=== PATIENT | male | born 1990 | race Caucasian/White ===

== ENCOUNTER 2019-11-06 18:23 | Emergency (ER) | payer BC ==
--- NOTE | 2019-11-06 19:17 | EDM.PDOC ---
ED HPI GENERAL MEDICAL PROBLEM - General Chief Complaint: ENT Problem Stated Complaint: SORE THROAT Time Seen by Provider: 11/06/19 19:00 Source of Information: Reports: Patient, Old Records, RN History Limitations: Reports: No Limitations - History of Present Illness INITIAL COMMENTS - FREE TEXT/NARRATIVE: 28 yo male with a pHx of strep presents with a couple day hx of sore throat. No fever or rash. No URI sx's. Onset: Gradual Onset Date: 11/04/19 Duration: Day(s): (2), Constant Location: Reports: Neck (throat) Quality: Reports: Other (raw) Severity: Mild Improves with: Reports: None Worsens with: Reports: Other (? time) Context: Reports: Other (see HPI) Associated Symptoms: Reports: No Other Symptoms Treatments TRAIN OPERATIONS MANAGER: Reports: Other (see below) (none) - Related Data Allergies Allergy/AdvReac Type Severity Reaction Status Date / Time sulfamethoxazole Allergy Rash Verified 11/06/19 18:25 [From Bactrim] trimethoprim [From Bactrim] Allergy Rash Verified 11/06/19 18:25 Home Meds: Home Meds Sertraline HCl 50 mg PO DAILY 11/06/19 [History] Past Medical History HEENT History: Reports: Impaired Vision, Otitis Media Other HEENT History: tubes in ears as child Gastrointestinal History: Reports: None Musculoskeletal History: Reports: Fracture Other Musculoskeletal History: fx fingers and toes in past Psychiatric History: Reports: Anxiety Endocrine/Metabolic History: Reports: Obesity/BMI 30+ - Past Surgical History Head Surgeries/Procedures: Reports: None HEENT Surgical History: Reports: None GI Surgical History: Reports: Other (See Below) Other GI Surgeries/Procedures: bowel resection as a child from [facility] Endocrine Surgical History: Reports: None Musculoskeletal Surgical History: Reports: None Dermatological Surgical History: Reports: None Social & Family History - Tobacco Use Smoking Status *Q: Current Every Day Smoker Years of Tobacco use: 8 Packs/Tins Daily: 1 Used Tobacco, but Quit: No Second Hand Smoke Exposure: No - Caffeine Use Caffeine Use: Reports: Energy Drinks, Soda - Recreational Drug Use Recreational Drug Use: Yes Drug Use in Last 12 Months: Yes Recreational Drug Type: Reports: Marijuana/Hashish Recreational Drug Use Frequency: Rarely ED ROS ENT - Review of Systems Review Of Systems: See Below Constitutional: Reports: No Symptoms HEENT: Reports: Throat Pain. Denies: Rhinitis Respiratory: Reports: No Symptoms Cardiovascular: Reports: No Symptoms GI/Abdominal: Reports: No Symptoms : Reports: No Symptoms Skin: Reports: No Symptoms Neurological: Reports: No Symptoms ED EXAM, ENT - Physical Exam Exam: See Below Exam Limited By: No Limitations General Appearance: Alert, WD/WN, No Apparent Distress, Obese Eye Exam: Bilateral Eye: Normal Inspection Ears: Normal External Exam, Normal Canal, Hearing Grossly Normal, Normal TMs Nose: Normal Inspection, No Blood. No: Clear Rhinorrhea Mouth/Throat: Normal Inspection, Normal Lips, Tonsillar Erythema Head: Atraumatic, Normocephalic Neck: Normal Inspection, Non-Tender Respiratory/Chest: No Respiratory Distress, Lungs Clear, Normal Breath Sounds, No Accessory Muscle Use Cardiovascular: Regular Rate, Rhythm, No Edema GI/Abdominal: Normal Bowel Sounds, Soft, Non-Tender, No Distention Back: Normal Inspection. No: CVA Tenderness (R), CVA Tenderness (L) Extremities: Normal Inspection Neurological: Alert, Oriented, CN II-XII Intact, Normal Cognition, No Motor/ Sensory Deficits Psychiatric: Normal Affect, Normal Mood Skin: Warm, Dry, Intact, Normal Color, No Rash Course - Vital Signs Last Recorded V/S: Last Vital Signs Temp 36.3 C 11/06/19 18:39 Pulse 80 11/06/19 18:39 Resp 16 11/06/19 18:39 BP 148/97 H 11/06/19 18:39 Pulse Ox 96 11/06/19 18:39 - Orders/Labs/Meds Orders: Active Orders 24 hr Category Date Time Status CULTURE STREP A CONFIRMATION [] Stat Lab 11/06/19 18:42 Results STREP SCRN A RAPID W CULT CONF [RM] Stat Lab 11/06/19 18:42 Results Departure - Departure Time of Disposition: 19:15 Disposition: Home, Self-Care 01 Condition: Good Clinical Impression: Acute tonsillitis Qualifiers: Pharyngitis/tonsillitis etiology: unspecified etiology Qualified Code(s): J03.90 - Acute tonsillitis, unspecified - Discharge Information *PRESCRIPTION DRUG MONITORING PROGRAM REVIEWED*: No *COPY OF PRESCRIPTION DRUG MONITORING REPORT IN PATIENT MELISSA: No Instructions: Tonsillitis, [id number] Referrals: Baylee Day PA-C [Primary Care Provider] - Additional Instructions: Acetaminophen and/or ibuprofen as needed for pain relief. Drink ample fluids and get ample rest. Hand washing to prevent spread. We'll contact you in the next 2-3 days if your culture grows strep. If we don't call you and you are still ill early next week recheck with your doctor regarding possible mononucleosis testing. Sepsis Event Note - Evaluation Sepsis Screening Result: No Definite Risk - Focused Exam Vital Signs: Vital Signs Temp Pulse Resp BP Pulse Ox 11/06/19 18:39 36.3 C 80 16 148/97 H 96 Date Exam was Performed: 11/06/19 Time Exam was Performed: 19:11 - My Orders Last 24 Hours: My Active Orders 11/06/19 18:42 CULTURE STREP A CONFIRMATION [RM] Stat STREP SCRN A RAPID W CULT CONF [RM] Stat - Assessment/Plan Last 24 Hours: My Active Orders 11/06/19 18:42 CULTURE STREP A CONFIRMATION [RM] Stat STREP SCRN A RAPID W CULT CONF [RM] Stat
== END 2019-11-06 19:28 | disposition home or self-care (01) ==
LOC: JP.ED 18:23
DX: J03.90 Acute tonsillitis, unspecified (principal); F17.210 Nicotine dependence, cigarettes, uncomplicated; Z88.2 Allergy status to sulfonamides; Z88.8 Allergy status to other drugs, medicaments and biological substances
CPT/HCPCS: 87081; 87880-QW; 99283

== ENCOUNTER 2021-02-13 19:50 | Emergency (ER) | payer BC, MEDICAID ==
[2021-02-13] MEDS ORDERED: LORazepam 1 MG Tab PO ONE (20:56)
--- NOTE | 2021-02-13 20:58 | EDM.PDOC ---
ED HPI GENERAL MEDICAL PROBLEM - General Chief Complaint: General Stated Complaint: ANXIETY/HARD TO BREATHE Time Seen by Provider: 02/13/21 20:17 Source of Information: Reports: Patient, Family (Spouse) History Limitations: Reports: No Limitations - History of Present Illness INITIAL COMMENTS - FREE TEXT/NARRATIVE: Ney is a 30-year-old male presenting to the ED for evaluation of increased anxiety causing hyperventilation syndrome. The patient has a longstanding history of anxiety and had been on sertraline 50 mg daily for the last year. He is followed by [facility] in the [facility]. He was seen by this provider a month ago who wanted to increase his sertraline from 50 mg to 100 mg a day even though the patient said he was doing well. I do not know what his PHQ-9 score was, however, defining all odds instead of increasing his sertraline, he decided to stop it altogether a month ago. Patient has been having increasing episodes of anxiety and panic attacks over the last 2 weeks. 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 His symptoms started with perioral and fingertip numbness and progressed to fairly whole body tingling and cramping. He pulled over to the side of the road and called 911. The dispatcher tried to hitting coach him into slowing his breathing down and EMS was dispatched. They assessed him at the scene including doing an EKG and taking his vitals. He reports that they said his vitals were normal and his EKG was unremarkable. He went home and slept for a few hours and then was still feeling tight in the chest so thought he would come in and be evaluated. He is unclear why he is having needs more frequent panic attacks and repeatedly states that he does not want to have this hyperventilation episode again. I spent a considerable amount of time discussing the physiology of stress, anxiety, panic attacks and hyperventilation syndrome and how each of the actions leads to a reaction causing the symptom. Certainly after being on an SSRI for a year and suddenly stopping it, he is more likely to have a marked increase of his anxiety as he now has unopposed serotonin reuptake receptors in the presence of diminished serotonin and dopamine overdrive pushing catecholamine release. He is still having symptoms of perioral and fingertip numbness. He also does not understand why he feels so tired after this episode. - Related Data Allergies Allergy/AdvReac Type Severity Reaction Status Date / Time sulfamethoxazole Allergy Rash Verified 11/06/19 18:25 [From Bactrim] trimethoprim [From Bactrim] Allergy Rash Verified 11/06/19 18:25 Home Meds: Home Meds Sertraline HCl 50 mg PO DAILY 11/06/19 [History] Past Medical History HEENT History: Reports: Impaired Vision, Otitis Media Other HEENT History: tubes in ears as child Gastrointestinal History: Reports: None Musculoskeletal History: Reports: Fracture Other Musculoskeletal History: fx fingers and toes in past Psychiatric History: Reports: Anxiety Endocrine/Metabolic History: Reports: Obesity/BMI 30+ - Past Surgical History Head Surgeries/Procedures: Reports: None HEENT Surgical History: Reports: None GI Surgical History: Reports: Other (See Below) Other GI Surgeries/Procedures: bowel resection as a child from [facility] Endocrine Surgical History: Reports: None Musculoskeletal Surgical History: Reports: None Dermatological Surgical History: Reports: None Social & Family History - Tobacco Use Tobacco Use Status *Q: Current Every Day Tobacco User Years of Tobacco use: 10 Packs/Tins Daily: 0.5 - Caffeine Use Caffeine Use: Reports: None - Recreational Drug Use Recreational Drug Use: No ED ROS GENERAL - Review of Systems Review Of Systems: See Below Constitutional: Reports: No Symptoms HEENT: Reports: No Symptoms Respiratory: Reports: Shortness of Breath Cardiovascular: Reports: Chest Pain (Central chest tightness) Endocrine: Reports: Fatigue GI/Abdominal: Reports: No Symptoms : Reports: No Symptoms Musculoskeletal: Reports: Muscle Pain (Muscle cramping) Skin: Reports: No Symptoms Neurological: Reports: No Symptoms Psychiatric: Reports: Anxiety Hematologic/Lymphatic: Reports: No Symptoms Immunologic: Reports: No Symptoms ED EXAM, GENERAL - Physical Exam Exam: See Below Exam Limited By: No Limitations General Appearance: Alert, Anxious, Mild Distress Eye Exam: Bilateral Eye: EOMI, PERRL Throat/Mouth: Normal Inspection, Normal Lips, Normal Oropharynx, Normal Voice, No Airway Compromise Head: Atraumatic, Normocephalic Neck: Normal Inspection, Supple, Non-Tender, Full Range of Motion Respiratory/Chest: No Respiratory Distress, Lungs Clear, Normal Breath Sounds Cardiovascular: Normal Peripheral Pulses, Regular Rate, Rhythm, No Murmur Peripheral Pulses: 2+: Radial (L), Radial (R), Posterior Tibial (L), Posterior Tibial (R) GI/Abdominal: Normal Bowel Sounds, Soft, Non-Tender Back Exam: Normal Inspection Extremities: Normal Inspection, Normal Range of Motion, Normal Capillary Refill Neurological: Alert, Oriented, Normal Cognition, No Motor/Sensory Deficits Psychiatric: Anxious (Very anxious), Flat Affect Skin Exam: Warm, Dry, Intact, Normal Color Lymphatic: No Adenopathy Course - Vital Signs Last Recorded V/S: Last Vital Signs Temp 35.8 C L 02/13/21 20:09 Pulse 86 02/13/21 20:09 Resp 18 02/13/21 20:09 BP 148/86 H 02/13/21 20:09 Pulse Ox 99 02/13/21 20:09 - Orders/Labs/Meds Labs: Laboratory Tests 02/13/21 Range/Units 20:56 Sodium 142 (140-148) mmol/L Potassium 3.5 L (3.6-5.2) mmol/L Chloride 105 (100-108) mmol/L Carbon Dioxide 24 (21-32) mmol/L Anion Gap 16.5 H (5.0-14.0) mmol/L BUN 15 (7-18) mg/dL Creatinine 1.0 (0.8-1.3) mg/dL Est Cr Clr Drug Dosing 126.73 mL/min Estimated GFR (MDRD) > 60 (>60) Glucose 123 H (74-106) mg/dL Calcium 9.4 (8.5-10.1) mg/dL TSH, Ultra Sensitive 0.661 (0.358-3.740) uIU/mL Meds: Medications Discontinued Medications Generic Name Dose Route Start Last Admin Trade Name Freq PRN Reason Stop Dose Admin Lorazepam 1 mg 02/13/21 20:56 02/13/21 21:10 Lorazepam 1 Mg Tab PO 02/13/21 20:57 1 mg ONETIME ONE Administration - Re-Assessments/Exams Free Text/Narrative Re-Assessment/Exam: 02/13/21 22:06 I reviewed the patient's basic metabolic profile and found him to be slightly hypokalemic. He may eat a few bananas or drink some orange juice to raise that back up. I had like him to restart his sertraline 50 mg daily. I also plan to send him home with a small quantity of lorazepam to be used only at the onset of panic attack hyperventilation syndrome. I want him to follow-up with his primary care provider early next week. Departure - Departure Time of Disposition: 22:05 Disposition: Home, Self-Care 01 Clinical Impression: Generalized anxiety disorder, Hyperventilation syndrome - Discharge Information Instructions: Generalized Anxiety Disorder, Adult, Hyperventilation, Managing Anxiety, Adult Referrals: Baylee Day PA-C [Primary Care Provider] - Forms: ED Department Discharge Care Plan Goals: I would like you to restart your sertraline 50 mg daily. I am sending you home with a small amount of lorazepam to use at the onset of panic attack hyperventilation to break the cycle. Please use this quite sparingly as it is addictive. I want you to follow-up with your provider early next week to discuss other treatment modalities and to let her know what transpired this weekend. Avoid using alcohol when taking the lorazepam. Sepsis Event Note (ED) - Evaluation Sepsis Screening Result: No Definite Risk - Focused Exam Vital Signs: Vital Signs Temp Pulse Resp BP Pulse Ox 02/13/21 20:09 35.8 C L 86 18 148/86 H 99 02/13/21 20:03 35.8 C L 86 18 148/86 H 99 - Problem List & Annotations (1) Generalized anxiety disorder SNOMED Code(s): 95288025 Code(s): F41.1 - GENERALIZED ANXIETY DISORDER Status: Acute Priority: High Current Visit: Yes (2) Hyperventilation syndrome SNOMED Code(s): 586137157 Code(s): F45.8 - OTHER SOMATOFORM DISORDERS Status: Acute Priority: High Current Visit: Yes - Problem List Review Problem List Initiated/Reviewed/Updated: Yes
== END 2021-02-13 22:19 | disposition home or self-care (01) ==
LOC: JP.ED 19:50
DX: F41.1 Generalized anxiety disorder (principal); F45.8 Other somatoform disorders; E66.9 Obesity, unspecified; Z68.35 Body mass index [BMI] 35.0-35.9, adult; Z72.0 Tobacco use; Z88.2 Allergy status to sulfonamides
CPT/HCPCS: 36415; 80048; 84443; 99284; A9270